=== PATIENT | female | born 1975 | race Caucasian/White ===

== ENCOUNTER 2018-01-08 07:30 | Inpatient (IN) | payer OTHER ==
[~2018-01-08] VITALS: Ht 154.9 cm; Wt 54.4 kg
[~2018-01-08 07:30] MED LIST: NO TOMA NADA
[2018-01-08] MEDS ORDERED: [UNRECOGNIZED DRUG - OTHER] PO (09:26)
[2018-01-16] MEDS ORDERED: IBUPROFEN800 MG PO (07:27)
[2018-01-16] MEDS ORDERED: GABAPENTIN600 MG PO (07:27)
[2018-01-16] MEDS ORDERED: CEFADROXIL500 MG PO (07:27)
[2018-01-16] MEDS ORDERED: Mylicon 125MG PO (07:27)
== END 2018-01-16 10:55 | disposition home or self-care (01) | DRG 743 ==
LOC: O/R 01-14 05:30 → OB/GYN 01-14 05:30
PROVIDERS: Obstetrics & Gynecology
PROC: 0UT70ZZ Resection of Bilateral Fallopian Tubes, Open Approach (ICD-10-PCS; 2018-01-14)
PROC: 0UT00ZZ Resection of Right Ovary, Open Approach (ICD-10-PCS; 2018-01-14)
PROC: 0UT90ZZ Resection of Uterus, Open Approach (ICD-10-PCS; principal; 2018-01-14 07:00)
PROC: 0DNW0ZZ Release Peritoneum, Open Approach (ICD-10-PCS; 2018-01-14 07:00)
DX: N80.0 Endometriosis of uterus (principal); N72 Inflammatory disease of cervix uteri; D25.9 Leiomyoma of uterus, unspecified; N93.8 Other specified abnormal uterine and vaginal bleeding; N83.11 Corpus luteum cyst of right ovary; N83.291 Other ovarian cyst, right side; N83.01 Follicular cyst of right ovary

== ENCOUNTER 2019-02-16 10:57 | Emergency (ER) | payer OTHER ==
[~2019-02-16] VITALS: Ht 154.9 cm; Wt 55.8 kg
[~2019-02-16 10:57] MED LIST changes: +CEFADROXIL500 MG PO; +GABAPENTIN600 MG PO; +IBUPROFEN800 MG PO; +Mylicon 125MG PO; +[UNRECOGNIZED DRUG - OTHER] PO
== END 2019-02-16 16:32 | disposition home or self-care (01) ==
LOC: ER 10:57
DX: N83.292 Other ovarian cyst, left side (principal); R10.32 Left lower quadrant pain